=== PATIENT | male | born 1995 | race Caucasian/White ===

== ENCOUNTER 2018-04-26 07:45 | Day surgery (SDC) | payer OTHER ==
[2018-04-26] MEDS: BUPIVACAINE 0.5% (SDV) 30 ML INJ
[~2018-04-26 07:45] MED LIST: CEFAZOLIN 1 GM INJ; DEXAMETHASONE 4 MG/ML 1 ML INJ; LIDOCAINE 2% (SDV) 5 ML INJ; ONDANSETRON 4 MG INJ
[2018-04-26] MEDS ORDERED: PROPOFOL 20 ML (09:31)
[2018-04-26] MEDS ORDERED: ROCURONIUM 50 MG INJ (09:34)
[2018-04-26] MEDS: LIDOCAINE 1% (MPF) 30 ML INJ (09:57)
[2018-04-26] MEDS ORDERED: KETOROLAC 30 MG INJ (10:45)
[2018-04-26] MEDS: POVIDONE IODINE 10% 28.4 GM OINT (10:45)
[2018-04-26] MEDS ORDERED: SUGAMMADEX SODIUM 200 MG/2 ML VIAL IV (10:46)
[2018-04-26] MEDS ORDERED: MEPERIDINE 25 MG INJ IV (11:00)
[2018-04-26] MEDS ORDERED: HYDROmorphONE 1 MG/5 ML IV SYRINGE IV ×3 (11:00)
[2018-04-26] MEDS ORDERED: KETOROLAC 30 MG INJ IV (11:00)
[2018-04-26] MEDS ORDERED: EPHEDrine SULFATE 50 MG/5 ML SYG IV (11:00)
[2018-04-26] MEDS ORDERED: FENTAnyl 50 MCG/ML VIAL IV ×3 (11:00)
[2018-04-26] MEDS ORDERED: OXYCODONE/ACETAMINOPHEN (5/325) TAB PO ×2 (11:00)
[2018-04-26] MEDS ORDERED: METOCLOPRAMIDE 10 MG INJ IV (11:00)
[2018-04-26] MEDS ORDERED: MIDAZOLAM 1 MG/ML 2 ML INJ IV (11:00)
[2018-04-26] MEDS ORDERED: hydrALAzine 20 MG INJ IV (11:00)
[2018-04-26] MEDS ORDERED: LABETALOL HCL 20MG INJ IV (11:00)
[2018-04-26] MEDS ORDERED: ONDANSETRON 4 MG INJ IV (11:00)
[2018-04-26] MEDS ORDERED: DIPHENHYDRAMINE 50 MG INJ IV (11:00)
[2018-04-26] MEDS ORDERED: ALBUTEROL 0.083% (NEB) 2.5 MG/3 ML AMP HHN (11:00)
== END 2018-04-26 12:50 | disposition home or self-care (01) ==
LOC: SDS 07:45
DX: M20.11 Hallux valgus (acquired), right foot (principal); M21.611 Bunion of right foot
CPT/HCPCS: 28299; 88304; 88311